=== PATIENT | female | born 1940 | race Caucasian/White ===

== ENCOUNTER 2020-03-19 10:38 | Outpatient (CLI) | payer MEDICARE, SELFPAY ==
--- NOTE | ~2020-03-19 | US_ITS ---
EXAMINATION: US carotid duplex BI DATE: 03/19/2020 11:36 INDICATION: Bilateral carotid artery stenosis TECHNIQUE: Grayscale, color Doppler, and pulsed Doppler images of the cervical carotid arteries were obtained. The degree of vessel stenosis is placed in one of the following categories: normal, <50%, 5 0-69%, >=70% but less than near-occlusion, near-occlusion, or total occlusion. Note that percent sten osis relative to normal distal artery lumen diameter is indirectly measured from velocity measurement s as described by Segundo, et al. Radiology 2003; [id number]. COMPARISON: 05/03/2016 FINDINGS: RIGHT: The right common carotid artery (CCA) peak systolic velocity (PSV) is 60 cm/s. The right internal ca rotid artery (ICA) PSV is 105 cm/s. The right ICA end-diastolic velocity (EDV) is 23 cm/s. The right ICA/CCA PSV ratio is 1.8. Grayscale and color Doppler images yield an estimate of <50% diameter reduc tion from plaque in the ICA. The external carotid artery (ECA) PSV is 132 cm/s. There is antegrade fl ow in the right vertebral artery. LEFT: The left CCA PSV is 81 cm/s. On grayscale images there appears to be a large amount of shadowing athe rosclerotic plaque in the left common carotid artery. The left ICA PSV is 106 cm/s. The left ICA EDV is 18 cm/s. The left ICA/CCA PSV ratio is 1.3. Grayscale and color Doppler images yield an estimate o f <50% diameter reduction from plaque in the ICA. The ECA PSV is 92 cm/s. There is antegrade flow in the left vertebral artery. IMPRESSION: 1. <50% stenosis in the right internal carotid artery. 2. <50% stenosis in the left internal carotid artery. Reviewed, dictated and finalized at location B.
== END 2020-03-19 10:39 | disposition home or self-care (01) ==
PROVIDERS: PCP Internal Medicine; Visit Provider Specialist
DX: I65.23 Occlusion and stenosis of bilateral carotid arteries (principal)
CPT/HCPCS: 93880

== ENCOUNTER 2020-10-10 10:28 | Emergency (ER) | payer MEDICARE, SELFPAY ==
--- NOTE | ~2020-10-10 | XR_ITS ---
EXAMINATION: XR foot LT min 3V DATE: 10/10/2020 11:05 INDICATION: Generalized left foot pain post fall TECHNIQUE: Dorsoplantar, two oblique and lateral views of the left foot were obtained. COMPARISON: None. FINDINGS: Third-fifth claw toes. Second proximal interphalangeal joint arthrodesis. Alignment is otherwise norm al. No acute fracture. 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 Moderate-sized plantar calcaneal spur. Vascular calcific changes along multiple vessels a t the left foot and ankle. No focal soft tissue swelling appreciated. IMPRESSION: 1. 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 No acute osseous abnor mality. Reviewed, dictated and finalized at location A. IMPRESSION: 1. 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 No acute osseous abnormality.
[2020-10-10 10:38] VITALS: BP 136/41; PULSE 66; RESP 20; TEMP 36.2; O2SAT 100
--- NOTE | 2020-10-10 10:38 | ED.LOWEXIN ---
HPI - Extremity Injury (Lower) General Chief Complaint: Extremity Injury, Lower Stated Complaint: left foot injury Time Seen by Provider: 10/10/20 10:38 Source: patient, family and RN notes reviewed Mode of arrival: wheelchair Limitations: no limitations History of Present Illness HPI Narrative: 80 yo female presents to the [facility] with C/O Left dorsal foot pain. Patient reports falling because of her neuropathy in her feet. Has pain to the dorsal aspect of left foot. Denies hitting head, no back pain, no chest pain, no shortness neurologic symptoms. Full range of motion no bruising noted. No redness noted. States she can feel in all five toes on palpation. Related Data Home Medications Medication Instructions Recorded Confirmed carvedilol 10/10/20 citalopram mg 10/10/20 clopidogrel 10/10/20 levothyroxine 10/10/20 pen needle, diabetic [BD 10/10/20 10/10/20 Ultra-Fine Celia Pen Needle] rosuvastatin mg 10/10/20 Allergies Allergy/AdvReac Type Severity Reaction Status Date / Time No Known Allergies Verified 10/10/20 10:53 Review of Systems Review of Systems: All systems reviewed & are unremarkable except as noted in HPI and below Constitutional: Constitutional: Reports no additional constitutional complaints Eyes: Eyes: Reports no additional eye complaints ENT: Reports system reviewed and no additional complaints, except as documented Cardiovascular: Cardiovascular: Reports no additional cardiovascular complaints and Denies chest pain Respiratory: Respiratory: Reports no additional respiratory complaints, Denies cough and Denies dyspnea Musculoskeletal: Comments: Dorsal aspect left foot tenderness without swelling or bruising Integumentary/Breasts: Skin/Breast: Reports system reviewed and no additional complaints, except as docu and Denies rash Neurologic: Reports weakness (Generalized weakness, daughter states is chronic) Psychiatric: Psychiatric: Reports no additional psychiatric complaints [facility] Family History Family History Other Diabetes mellitus Family history of malignant neoplasm Social History Social History Smoking status: Never smoker Alcohol intake: current Comments At the time of my signature, I reviewed and agree with the nursing past medical, surgical, social, and family history. There is no relevant family history pertinent to the patient complaint. Exam Const: General: no acute distress, alert and ill appearing chronically Nutritional Appearance: well nourished Orientation/consciousness: patient oriented x3 Limitations: no limitations HENMT: Head: normal to inspection Neck: Neck: normal visual inspection and no lymphadenopathy Chest: Chest palpation & inspection: normal inspection of the chest Resp: Effort & Inspection: normal respiratory effort and no use of accessory muscles Auscultation: clear to auscultation bilaterally, no crackles, no rales, no rhonchi and no wheezes Cardio: Rate: regular rate Rhythm: regular rhythm Back/Spine/Pelvis: Back: no CVA tenderness Skin: General skin exam: normal color Rashes: no rashes Wounds: wounds noted (Healed scabbed over wound noted left lateral ankle) Neuro: General: patient oriented x3, moves all extremities and no meningeal signs Speech: normal speech Gait exam (Neuro): Normal gait present Extrem: General: normal to inspection Ankle/foot/toe images: 1. Tenderness without bruising, erythema, swelling. Psych: Appearance: grossly normal Mental Status: mental status grossly normal Affect: normal affect Attitude: cooperative Thought content: Yes Normal thought content present Course Vital Signs Vital signs: Vital Signs Temperature 97.1 F L 10/10/20 10:38 Pulse Rate 66 10/10/20 10:38 Respiratory Rate 20 10/10/20 10:38 Blood Pressure 136/41 L 10/10/20 10:38 Pulse Oximetry 100
== END 2020-10-10 11:49 | disposition home or self-care (01) ==
PROVIDERS: Emergency Provider Nurse Practitioner; PCP Internal Medicine
DX: S90.32XA Contusion of left foot, initial encounter (principal); W19.XXXA Unspecified fall, initial encounter; E78.00 Pure hypercholesterolemia, unspecified; E03.9 Hypothyroidism, unspecified; I65.29 Occlusion and stenosis of unspecified carotid artery
CPT/HCPCS: 73630; 99213; G0463